=== PATIENT | female | born 1995 | race African-American/Black ===

== ENCOUNTER 2021-01-11 11:57 | Emergency (ER) | payer OTHER ==
[~2021-01-11] VITALS: Ht 160 cm; Wt 57.5 kg
[2021-01-11 11:57] VITALS: BP 103/70
[2021-01-11 14:22] LABS: HCG, SERUM QUALITATIVE NEGATIVE (NEGATIVE)
[2021-01-11 14:47] LABS: HEPATITIS B SURFACE ANTIBODY POSITIVE (POSITIVE); HEPATITIS B SURFACE ANTIGEN NEGATIVE (NEGATIVE); HIV 1&2 SCREEN CENTAUR NEGATIVE (NEGATIVE)
[2021-01-11] MEDS ORDERED: FLUCONAZOLE 50MG TABLET PO ONE (14:55)
[2021-01-11] MEDS ORDERED: LIDOCAINE 1% SDV 5ML VIAL DILUENT ONE (14:55)
[2021-01-11] MEDS ORDERED: cefTRIAXone 500MG VIAL (J0696 PER 250MG) IM ONE (14:55)
[2021-01-11] MEDS ORDERED: DOXYCYCLINE HYCLATE 100MG TABLET PO ONE (14:55)
[2021-01-11] MEDS ORDERED: DOXY100C37 PO (15:03)
== END 2021-01-11 15:47 | disposition home or self-care (01) ==
LOC: M ED 11:57
DX: B37.3 Candidiasis of vulva and vagina (principal); Z11.3 Encounter for screening for infections with a predominantly sexual mode of transmission; N89.8 Other specified noninflammatory disorders of vagina
CPT/HCPCS: 81001; 84703; 86706; 86780; 86803; 87086; 87210; 87340; 87389; 87490; 87590; 87661; 96372; 99283; J0696

== ENCOUNTER → 2022-05-22 | Outpatient (CLI) | payer OTHER ==
[~2022-05-22] MED LIST: DOXY-443 PO
== END ==
LOC: M LAB 09:07
PROVIDERS: ATTEND Registered Nurse
DX: Z32.00 Encounter for pregnancy test, result unknown (principal)

== ENCOUNTER → 2022-05-24 | Outpatient (CLI) | payer OTHER | LOC: M LAB 09:20 | PROVIDERS: ATTEND Registered Nurse | DX: Z32.00 Encounter for pregnancy test, result unknown (principal) ==